=== PATIENT | female | born 1940 | race Caucasian/White ===

== ENCOUNTER 2016-06-08 07:08 | Day surgery (SDC) | payer MEDICARE, OTHER ==
[2016-05-27 09:47] LABS: BASOPHILS 0.5 %; BASOPHILS ABSOLUTE 0.02 10/3/uL (0.0-0.16); EOSINOPHILS 12.6 %; EOSINOPHILS ABSOLUTE 0.48 10/3/uL (0.0-0.53); HEMATOCRIT 38.6 % (36.0-48.0); HEMOGLOBIN 13.3 g/dL (12.0-16.0); LYMPHOCYTES 39.9 %; LYMPHOCYTES ABSOLUTE 1.52 10/3/uL (0.67-4.30); MEAN CORPUS HGB CONC 34.5 g/dL (32.0-36.0); MEAN CORPUSCULAR HEMOGLOB 30.4 pg (26.0-34.0); MEAN CORPUSCULAR VOLUME 88.3 fL (80-100); MEAN PLATELET VOLUME 9.6 fL (9.2-13.0); MONOCYTES 9.4 %; MONOCYTES ABSOLUTE 0.36 10/3/uL (0.21-1.20); NEUTROPHILS 37.6 %; NEUTROPHILS ABSOLUTE 1.43 10/3/uL (2.02-8.40); PLATELET COUNT 197 10/3/uL (150-400); RBC DISTRIBUTION WIDTH 13.1 % (12.0-16.0); RED CELL COUNT 4.37 10/6/uL (4.0-5.6); WHITE BLOOD CELLS 3.8 10/3/uL (4.5-10.5)
[2016-05-27 09:48] LABS: MANUAL DIFF NO %
[2016-05-27 09:51] LABS: ASCORBIC ACID (UR NOT ORDER) NEG (NEG); BILIRUBIN, URINE NEGATIVE (NEG); KETONE, URINE NEGATIVE (NEG); LEUKOCYTE ESTERASE(NOT OR NEG (NEG); WBC (NOT ORDERED) (RFLEX) < 1 (0-5)
[2016-05-27 09:57] LABS: INTERNATIONAL NORMAL RATI 1.2 UNITS (-); PARTIAL THROMBO TIME 40.9 SEC (22.5-37.2)
[2016-05-27 10:00] LABS: PROTIME (NOT ORD) 14.9 SEC (12.0-14.5)
[2016-05-27 10:03] LABS: A/G RATIO 0.9 (0.7-1.9); ALBUMIN 3.5 G/DL (3.5-5.0); ALKALINE PHOSPHATASE 93 U/L (45-117); CALCIUM, SERUM 8.8 MG/DL (8.5-10.4); CHLORIDE, SERUM 104 MMOL/L (96-112); CO2 (CARBON DIOXIDE) 30 MMOL/L (24-34); CREATININE 0.76 MG/DL (0.55-1.02); GFR AFRICAN AMERICAN 90 ML/MIN (>=60); GFR NON AFRICAN AMERICAN 78 ML/MIN (>=60); GLOBULIN 3.7 G/DL (2.5-4.1); POTASSIUM, SERUM 3.7 MMOL/L (3.5-5.3); SGOT(AST) 18 U/L (5-40); SGPT(ALT) 25 U/L (5-65); SODIUM, SERUM 141 MMOL/L (135-148); TOTAL BILIRUBIN 0.9 MG/DL (0-1.2); TOTAL PROTEIN 7.2 G/DL (6.0-8.5)
[2016-05-27 10:05] LABS: BUN (BLOOD UREA NITROGEN) 19 MG/DL (6-23); GLUCOSE, SERUM 62 MG/DL (60-99)
[~2016-06-08 07:08] MED LIST: COREG6 PO; DSS PO; MUCINEX600 MG PO; OMEGA PO; PRAVACHOL80 MG PO; SALSALATE PO; T PO; [UNRECOGNIZED DRUG - OTHER] PO
== END 2016-06-08 23:59 | disposition home or self-care (01) ==
LOC: SDC 07:08
PROVIDERS: Orthopaedic Surgery
DX: M16.10 Unilateral primary osteoarthritis, unspecified hip (principal); Z53.8 Procedure and treatment not carried out for other reasons
CPT/HCPCS: 36415; 71020; 80053; 81001; 85025; 85610; 85730; 86850; 86900; 86901; 87641; 93005; A9270-GY; J0690; J1885; J2274; J2795

== ENCOUNTER 2016-06-15 10:08 | Inpatient (IN) | payer MEDICARE, OTHER ==
--- NOTE | ~2016-06-15 | OP ---
Record Of Operation [facility] [address] [place]. [address] NAME: JAMES ESTRADA : 44 STATUS : ADM IN PAT#: [id number] AGE: 75 ADM/REG DATE : 06/15/16 MR#: [id number] REPORT SERV DATE: 06/15/16 DICTATED BY: HAYDEE PLASCENCIA DATE: 06/15/16 REPORT STATUS : Draft TRANSCRIBED BY: MODL DATE: 06/15/16 DATE OF PROCEDURE: 06/15/2016 PREOPERATIVE DIAGNOSIS: Left hip arthritis. POSTOPERATIVE DIAGNOSIS: Left hip arthritis. PROCEDURE PERFORMED: Left total hip arthroplasty. SURGEON: Haydee Plascencia M.D. BACTERIOLOGY TECHNICIAN: Piper Ferguson. ANESTHESIA: General with local infusion. PROCEDURE IN DETAIL: The patient is clearly identified and after obtaining informed consent is brought to the operating room at [facility] where here the patient is induced under general anesthesia and subsequently placed in the left lateral decubitus position. This concluded, the thigh and flank are prepped and draped in the usual manner. A time-out procedure successfully performed and after registering the knee and marking the anatomy through an approximately 4.5 incision, the skin is divided. The fascial planes are divided. The lateral fascia then is divided. Hemostasis is obtained with electrocautery and a Charnley retractor is applied. The piriformis is identified, tagged, divided, and retracted over the sciatic nerve felt deep in the wound. At which point, the mini approach to the hip is formed with dividing the capsule in a mini approach with a cuff of tissues remaining at the femoral side to accomplish repair at the conclusion of the case. Dislocating the hip, end-stage arthritic changes are noted. The tissue surrounding the femoral neck are protected with the Hohmann retractor and the femoral neck cut is made according to preoperative templating. This concluded, the femoral head is removed. The acetabulum is exposed. The labral and fluvial tissues are removed and reaming is performed. Subsequently trialing with the appropriate trial, the permanent acetabular components placed with the [place] Sector. At which point, the acetabular trial component is then placed. The proximal femur is then addressed. The structures posteromedial to the greater trochanter are removed and this concluded the gladis-catalinater canal finder lateralizer and reaming is performed. This concluded, broaching is performed and with excellent fit-fill and stability for the implant trialing is performed finding excellent leg length, stability, no impingement, good kickback, no push-pull, and the lesser trochanter palpably at the appropriate distance from the ischium when compared to preoperative templating. The trials were felt to be appropriate. These are all then removed and the permanent implants are then carefully applied uneventfully. Copious irrigation is then performed with same stability and findings noted after insertion. At which point, the joint then is carefully closed in layers including capsule, piriformis, lateral fascia, deep tissues, and skin. Aquacel dressing is applied and the patient is then allowed to awaken, is placed supine and is returned to the recovery room in stable condition having tolerated the procedure well. ESTIMATED BLOOD LOSS: 400 mL. Record Of Operation [facility] [id number] [place]. [address] NAME: JAMES ESTRADA : 44 STATUS : ADM IN [facility]#: [id number] AGE: 75 ADM/REG DATE : 06/15/16 MR#: [id number] REPORT SERV DATE: 06/15/16 DICTATED BY: HAYDEE PLASCENCIA DATE: 06/15/16 REPORT STATUS : Draft TRANSCRIBED BY: ANDRE DATE: 06/15/16 FLUIDS: 1300 mL. TOURNIQUET TIME: None. PATHOLOGY: Sent specimen. MICROBIOLOGY: None. COMPLICATIONS: None. SPONGE AND NEEDLE COUNTS: Reportedly correct. ANTIBIOTICS: Administered appropriately preoperatively and ordered to be discontinued within 23 hours. IMPLANTS: DePuy hip system, femur [place], size 5 standard, +1.5/36 metal head. Acetabulum, [place] sector size 52 with a +4 neutral liner, and no screws. DARIUS/ANDRE Haydee Plascencia M.D. / [id number] CC: Haydee Plascencia M.D.
--- NOTE | ~2016-06-15 | DS ---
Discharge Summary [facility] [address] [place]. [address] NAME: JAMES ESTRADA : 44 STATUS : DIS IN PAT#: [id number] AGE: 75 ADM/REG DATE : 06/15/16 MR#: [id number] REPORT SERV DATE: 06/28/16 DICTATED BY: HAYDEE PLASCENCIA DATE: 06/25/16 REPORT STATUS : Draft TRANSCRIBED BY: ANDRE DATE: 06/25/16 Data Collection from hospitalization DISCHARGE DIAGNOSES: 1. Left hip arthritis. 2. Hypertension. 3. History of mitral valve prolapse. CONSULTATIONS: None. PROCEDURES PERFORMED: Left total hip arthroplasty on 06/15/2016. PATHOLOGY: Bone and soft tissue, left hip joint, arthroplasty - degenerative joint disease with eburnation and subchondral cyst formation. MEDICATIONS: Coreg 6.25 mg twice a day, Colace 100 mg at bedtime, Pepcid 20 mg twice a day, ferrous sulfate 300 mg with breakfast and supper, Mucinex 600 mg every 12 hours, Theragran tablets one tablet with breakfast, Pravachol 80 mg every evening, Coumadin as instructed, Tylenol 650 mg every six hours as needed, Mylanta 30 mL as needed, Dulcolax 15 mg as needed, milk of magnesia 30 mL as needed, Zofran 4 mg every four hours as needed, MiraLAX powder one packet twice a day as needed, Roxicodone 5-10 mg every four hours as needed, and omega-3 as instructed. She was instructed to hold Coumadin on the evening of discharge and on 06/19/2016. She would resume Coumadin at 2.5 mg on 06/20/2016. Tramadol 50 mg every six hours as needed for pain. CONDITION AT DISCHARGE: Stable. DISPOSITION: The patient was discharged to [facility] on [address] on a regular diet with activities as instructed. [facility] at [facility] [address] on 06/30/2016. HOSPITAL COURSE: This is a 75-year-old female who has left hip arthritis. Treatment options were discussed and it was elected to proceed with surgical intervention. She was admitted to the hospital at this time for further evaluation and treatment. Upon admission, she was taken to the operating room where she underwent the above-mentioned procedure. She tolerated this well, and there were no complications. On postop day #1, she was alert and cooperative. She had no edema. She was doing well. Over the next couple of days, she continued to progress. Discharge planning was performed. Her blood pressure was controlled. Carvedilol was continued as well as pravastatin. On 06/18/2016, she was up sitting in a bedside chair. BERNARDO hose were in place. She had been evaluated by Occupational and Physical Therapy. Discharge instructions were given. Due to her improved and stable condition, she was discharged to [facility] on [address] with the above-stated instructions. Information collected by: Azalia Meza I submit the above information as my discharge summary. Discharge Summary [address] [address] NAME: JAMES ESTRADA : 44 STATUS : DIS IN [facility]#: [id number] AGE: 75 ADM/REG DATE : 06/15/16 MR#: [id number] REPORT SERV DATE: 06/28/16 DICTATED BY: HAYDEE PLASCENCIA DATE: 06/25/16 REPORT STATUS : Draft TRANSCRIBED BY: ANDRE DATE: 06/25/16 TG/ANDRE Haydee Plascencia M.D. / [id number] CC: Yolanda Brannon M.D. [facility]
[2016-06-15 10:59] LABS: BASOPHILS 0.6 %; BASOPHILS ABSOLUTE 0.03 10/3/uL (0.0-0.16); EOSINOPHILS 8.8 %; EOSINOPHILS ABSOLUTE 0.47 10/3/uL (0.0-0.53); HEMATOCRIT 42.6 % (36.0-48.0); HEMOGLOBIN 14.6 g/dL (12.0-16.0); IMMATURE GRANULOCYTES 0.4 %; IMMATURE GRANULOCYTES ABSOLUTE 0.02 10/3/uL (0.0-0.11); LYMPHOCYTES 33.3 %; LYMPHOCYTES ABSOLUTE 1.79 10/3/uL (0.67-4.30); MANUAL DIFF NO %; MEAN CORPUS HGB CONC 34.3 g/dL (32.0-36.0); MEAN CORPUSCULAR HEMOGLOB 30.4 pg (26.0-34.0); MEAN CORPUSCULAR VOLUME 88.6 fL (80-100); MEAN PLATELET VOLUME 9.8 fL (9.2-13.0); MONOCYTES 9.7 %; MONOCYTES ABSOLUTE 0.52 10/3/uL (0.21-1.20); NEUTROPHILS 47.2 %; NEUTROPHILS ABSOLUTE 2.54 10/3/uL (2.02-8.40); PLATELET COUNT 207 10/3/uL (150-400); RBC DISTRIBUTION WIDTH 12.9 % (12.0-16.0); RED CELL COUNT 4.81 10/6/uL (4.0-5.6); WHITE BLOOD CELLS 5.4 10/3/uL (4.5-10.5)
[2016-06-15 11:05] LABS: INTERNATIONAL NORMAL RATI 1.1 UNITS (-); PROTIME (NOT ORD) 14.4 SEC (12.0-14.5)
[2016-06-15 11:05] LABS: ASCORBIC ACID (UR NOT ORDER) NEG (NEG); BILIRUBIN, URINE NEGATIVE (NEG); KETONE, URINE NEGATIVE (NEG); LEUKOCYTE ESTERASE(NOT OR NEG (NEG); WBC (NOT ORDERED) (RFLEX) < 1 (0-5)
[2016-06-15 11:15] LABS: A/G RATIO 1.1 (0.7-1.9); ALKALINE PHOSPHATASE 101 U/L (45-117); BUN (BLOOD UREA NITROGEN) 16 MG/DL (6-23); CALCIUM, SERUM 9.6 MG/DL (8.5-10.4); CHLORIDE, SERUM 106 MMOL/L (96-112); CO2 (CARBON DIOXIDE) 30 MMOL/L (24-34); CREATININE 0.75 MG/DL (0.55-1.02); GFR AFRICAN AMERICAN 92 ML/MIN (>=60); GFR NON AFRICAN AMERICAN 79 ML/MIN (>=60); GLOBULIN 3.8 G/DL (2.5-4.1); SGOT(AST) 18 U/L (5-40); SGPT(ALT) 23 U/L (5-65); SODIUM, SERUM 143 MMOL/L (135-148); TOTAL BILIRUBIN 1.3 MG/DL (0-1.2); TOTAL PROTEIN 7.8 G/DL (6.0-8.5)
[2016-06-15 11:17] LABS: GLUCOSE, SERUM 109 MG/DL (60-99); POTASSIUM, SERUM 4.7 MMOL/L (3.5-5.3)
[2016-06-16 05:15] LABS: INTERNATIONAL NORMAL RATI 1.2 UNITS (-); PROTIME (NOT ORD) 15.5 SEC (12.0-14.5)
[2016-06-16 05:20] LABS: CHLORIDE, SERUM 104 MMOL/L (96-112); CO2 (CARBON DIOXIDE) 28 MMOL/L (24-34); CREATININE 0.75 MG/DL (0.55-1.02); GFR AFRICAN AMERICAN 92 ML/MIN (>=60); GFR NON AFRICAN AMERICAN 79 ML/MIN (>=60); POTASSIUM, SERUM 5.4 MMOL/L (3.5-5.3); SODIUM, SERUM 140 MMOL/L (135-148)
[2016-06-16 05:22] LABS: BUN (BLOOD UREA NITROGEN) 21 MG/DL (6-23); CALCIUM, SERUM 8.5 MG/DL (8.5-10.4); GLUCOSE, SERUM 149 MG/DL (60-99)
[2016-06-16 05:32] LABS: HEMATOCRIT 30.3 % (36.0-48.0); HEMOGLOBIN 10.8 g/dL (12.0-16.0)
[2016-06-17 05:26] LABS: INTERNATIONAL NORMAL RATI 1.8 UNITS (-)
[2016-06-17 05:27] LABS: PROTIME (NOT ORD) 20.5 SEC (12.0-14.5)
[2016-06-17 05:30] LABS: HEMOGLOBIN 8.8 g/dL (12.0-16.0)
[2016-06-17 05:31] LABS: HEMATOCRIT 25.4 % (36.0-48.0)
[2016-06-18 04:22] LABS: HEMOGLOBIN 8.1 g/dL (12.0-16.0)
[2016-06-18 04:24] LABS: HEMATOCRIT 22.7 % (36.0-48.0)
[2016-06-18 04:34] LABS: PROTIME (NOT ORD) 30.6 SEC (12.0-14.5)
== END 2016-06-18 16:11 | DRG 470 ==
LOC: SDC/OF 10:08 → 3SO 21:40
PROVIDERS: Orthopaedic Surgery
PROC: 0SRB02A Replacement of Left Hip Joint with Metal on Polyethylene Synthetic Substitute, Uncemented, Open Approach (ICD-10-PCS; principal; 2016-06-15 12:15)
DX: M16.12 Unilateral primary osteoarthritis, left hip (principal); I10 Essential (primary) hypertension; E78.5 Hyperlipidemia, unspecified
CPT/HCPCS: 36415; 72170; 80048; 80053; 81001; 84132; 85014; 85018; 85025; 85610; 85730; 86850; 86900; 86901; 88304; 88311; 97110-GP; 97116-GP; 97161-GP; 97165-GO; 97535-GO; A9270-GY; C1776; G8978-CK-GP; G8979-CK-GP; G8980-CJ-GP; G8987-CK-GO; G8988-CK-GO; G8989-CK-GO; J0690; J1170; J1885; J2274; J2370; J2405; J2550; J2710; J2795; J3010